=== PATIENT | male | born 1965 | race Caucasian/White ===

== ENCOUNTER 2016-10-08 01:34 | Emergency (ER) | payer MEDICAID ==
--- NOTE | 2016-10-08 02:11 | EDM.PDOC ---
<Michael Malik - Last Filed: 10/08/16 09:42> ED HPI GENERAL MEDICAL PROBLEM - General Chief Complaint: Flank Pain Stated Complaint: TROUBLE URINATING/VOMITING BLOOD Time Seen by Provider: 10/08/16 02:08 - Related Data Allergies Allergy/AdvReac Type Severity Reaction Status Date / Time No Known Allergies Allergy Verified 10/08/16 01:52 Home Meds: Home Meds Acetaminophen [Tylenol] 325 mg PO Q4H PRN 05/02/14 [History] Course - Vital Signs Last Recorded V/S: Last Vital Signs Temp 36.3 C 10/08/16 06:25 Pulse 104 H 10/08/16 06:25 Resp 18 10/08/16 06:25 BP 155/89 H 10/08/16 06:25 Pulse Ox 96 10/08/16 06:25 - Orders/Labs/Meds Labs: Laboratory Tests 10/08/16 10/08/16 10/08/16 Range/Units 02:10 02:10 02:49 WBC 8.2 (4.5-11.0) K/uL RBC 5.12 (4.30-5.90) M/uL Hgb 16.0 H (12.0-15.0) g/dL Hct 47.3 (40.0-54.0) % MCV 92 (80-98) fL MCH 31 (27-31) pg MCHC 34 (32-36) % Plt Count 168 (150-400) K/uL Neut % (Auto) 91 H (36-66) % Lymph % (Auto) 7 L (24-44) % [place] % (Auto) 2 (2-6) % Eos % (Auto) 0 L (2-4) % Baso % (Auto) 0 (0-1) % Sodium 137 L (140-148) mmol/L Potassium 5.1 (3.6-5.2) mmol/L Chloride 94 L (100-108) mmol/L Carbon Dioxide 20 L (21-32) mmol/L Anion Gap 28.1 H (5.0-14.0) mmol/L BUN 42 H D (7-18) mg/dL Creatinine 2.2 H D (0.8-1.3) mg/dL Est Cr Clr Drug Dosing 41.02 mL/min Estimated GFR (MDRD) 32 L (>60) Glucose 92 (74-106) mg/dL Calcium 10.3 H (8.5-10.1) mg/dL Total Bilirubin 7.6 H D (0.2-1.0) mg/dL AST 16905 H (15-37) U/L ALT 7705 H (12-78) U/L Alkaline Phosphatase 264 H D (46-116) U/L Total Protein 6.6 (6.4-8.2) g/dL Albumin 3.6 (3.4-5.0) g/dL Globulin 3.0 (2.3-3.5) g/dL Albumin/Globulin Ratio 1.2 (1.2-2.2) Amylase (25-115) U/L Lipase (73-393) U/L Urine Color Urine Appearance Urine pH (4.5-8.0) Ur Specific [place] (1.008-1.030) Urine Protein (NEGATIVE) mg/dL Urine Glucose (UA) (NEGATIVE) mg/dL Urine Ketones (NEGATIVE) mg/dL Urine Occult Blood (NEGATIVE) Urine Nitrite (NEGAITVE) Urine Bilirubin (NEGATIVE) Urine Urobilinogen (NORMAL) mg/dL Ur Leukocyte Esterase (NEGATIVE) Urine RBC (0-5) Urine WBC (0-5) Ur Epithelial Cells Amorphous Sediment Urine Bacteria Urine Mucus Acetaminophen (10.0-30.0) ug/mL Hepatitis A IgM Ab Non reactive (NR) Hep Bs Antigen Non reactive (NR) Hep B Core IgM Ab Non reactive (NR) Hepatitis C Antibody Non reactive (NR) Hepatitis Interpret See below 10/08/16 10/08/16 10/08/16 Range/Units 02:51 03:10 03:16 WBC (4.5-11.0) K/uL RBC (4.30-5.90) M/uL Hgb (12.0-15.0) g/dL Hct (40.0-54.0) % MCV (80-98) fL MCH (27-31) pg MCHC (32-36) % Plt Count (150-400) K/uL Neut % (Auto) (36-66) % Lymph % (Auto) (24-44) % [place] % (Auto) (2-6) % Eos % (Auto) (2-4) % Baso % (Auto) (0-1) % Sodium (140-148) mmol/L Potassium (3.6-5.2) mmol/L Chloride (100-108) mmol/L Carbon Dioxide (21-32) mmol/L Anion Gap (5.0-14.0) mmol/L BUN (7-18) mg/dL Creatinine (0.8-1.3) mg/dL Est Cr Clr Drug Dosing mL/min Estimated GFR (MDRD) (>60) Glucose (74-106) mg/dL Calcium (8.5-10.1) mg/dL Total Bilirubin (0.2-1.0) mg/dL AST (15-37) U/L ALT (12-78) U/L Alkaline Phosphatase (46-116) U/L Total Protein (6.4-8.2) g/dL Albumin (3.4-5.0) g/dL Globulin (2.3-3.5) g/dL Albumin/Globulin Ratio (1.2-2.2) Amylase 170 H (25-115) U/L Lipase 1473 H (73-393) U/L Urine Color Brown Urine Appearance Cloudy Urine pH 5.0 (4.5-8.0) Ur Specific [place] 1.025 (1.008-1.030) Urine Protein 30 H (NEGATIVE) mg/dL Urine Glucose (UA) Normal (NEGATIVE) mg/dL Urine Ketones 15 H (NEGATIVE) mg/dL Urine Occult Blood Moderate (NEGATIVE) Urine Nitrite Negative (NEGAITVE) Urine Bilirubin Moderate (NEGATIVE) Urine Urobilinogen 4 (NORMAL) mg/dL Ur Leukocyte Esterase Small (NEGATIVE) Urine RBC 10-20 H (0-5) Urine WBC 0-5 (0-5) Ur Epithelial Cells Not seen Amorphous Sediment Few Urine Bacteria Not seen Urine Mucus Not seen Acetaminophen (10.0-30.0) ug/mL Hepatitis A IgM Ab (NR) Hep Bs Antigen (NR) Hep B Core IgM Ab (NR) Hepatitis C Antibody (NR) Hepatitis Interpret 10/08/16 Range/Units 09:15 WBC (4.5-11.0) K/uL RBC (4.30-5.90) M/uL Hgb (12.0-15.0) g/dL Hct (40.0-54.0) % MCV (80-98) fL MCH (27-31) pg MCHC (32-36) % Plt Count (150-400) K/uL Neut % (Auto) (36-66) % Lymph % (Auto) (24-44) % [place] % (Auto) (2-6) % Eos % (Auto) (2-4) % Baso % (Auto) (0-1) % Sodium (140-148) mmol/L Potassium (3.6-5.2) mmol/L Chloride (100-108) mmol/L Carbon Dioxide (21-32) mmol/L Anion Gap (5.0-14.0) mmol/L BUN (7-18) mg/dL Creatinine (0.8-1.3) mg/dL Est Cr Clr Drug Dosing mL/min Estimated GFR (MDRD) (>60) Glucose (74-106) mg/dL Calcium (8.5-10.1) mg/dL Total Bilirubin (0.2-1.0) mg/dL AST (15-37) U/L ALT (12-78) U/L Alkaline Phosphatase (46-116) U/L Total Protein (6.4-8.2) g/dL Albumin (3.4-5.0) g/dL Globulin (2.3-3.5) g/dL Albumin/Globulin Ratio (1.2-2.2) Amylase (25-115) U/L Lipase (73-393) U/L Urine Color Urine Appearance Urine pH (4.5-8.0) Ur Specific [place] (1.008-1.030) Urine Protein (NEGATIVE) mg/dL Urine Glucose (UA) (NEGATIVE) mg/dL Urine Ketones (NEGATIVE) mg/dL Urine Occult Blood (NEGATIVE) Urine Nitrite (NEGAITVE) Urine Bilirubin (NEGATIVE) Urine Urobilinogen (NORMAL) mg/dL Ur Leukocyte Esterase (NEGATIVE) Urine RBC (0-5) Urine WBC (0-5) Ur Epithelial Cells Amorphous Sediment Urine Bacteria Urine Mucus Acetaminophen 28.5 (10.0-30.0) ug/mL Hepatitis A IgM Ab (NR) Hep Bs Antigen (NR) Hep B Core IgM Ab (NR) Hepatitis C Antibody (NR) Hepatitis Interpret Meds: Medications Discontinued Medications Generic Name Dose Route Start Last Admin Trade Name Freq PRN Reason Stop Dose Admin Cyclobenzaprine HCl 10 mg 10/08/16 02:41 10/08/16 02:56 Flexeril PO 10/08/16 02:42 10 mg ONETIME ONE Administration Hydromorphone HCl 0.5 mg 10/08/16 04:49 Dilaudid IVPUSH 10/08/16 04:50 ONETIME ONE Sodium Chloride 1,000 mls @ 999 mls/hr 10/08/16 03:00 10/08/16 03:04 Normal Saline IV 999 mls/hr ASDIRECTED BRITTANY Administration Sodium Chloride 1,000 mls @ 500 mls/hr 10/08/16 03:30 10/08/16 04:25 Normal Saline IV 500 mls/hr ASDIRECTED BRITTANY Administration Sodium Chloride 1,000 mls @ 400 mls/hr 10/08/16 05:00 10/08/16 06:22 Normal Saline IV 400 mls/hr ASDIRECTED BRITTANY Administration Ketorolac Tromethamine 60 mg 10/08/16 02:41 10/08/16 03:08 Toradol IM 10/08/16 02:42 Not Given ONETIME ONE Ketorolac Tromethamine 30 mg 10/08/16 02:49 10/08/16 03:05 Toradol IVPUSH 10/08/16 02:50 30 mg ONETIME ONE Administration Ondansetron HCl 4 mg 10/08/16 05:05 10/08/16 05:17 Zofran IVPUSH 10/08/16 05:06 4 mg ONETIME ONE Administration Pantoprazole Sodium 40 mg 10/08/16 05:44 10/08/16 05:53 Protonix Iv IVPUSH 10/08/16 05:45 40 mg ONETIME ONE Administration Departure - Departure Time of Disposition: 09:47 Disposition: DC/Tfer to Acute Hospital 02 Condition: Fair Clinical Impression: Ribs, multiple fractures, Liver disease due to alcohol - Discharge Information Referrals: Michael Avila MD [Primary Care Provider] - Forms: ED Department Discharge - Problem List & Annotations (1) Ribs, multiple fractures SNOMED Code(s): 7668209 Code(s): S22.49XA - MULTIPLE FRACTURES OF RIBS, UNSP SIDE, INIT FOR CLOS FX Status: Acute (2) Liver disease due to alcohol SNOMED Code(s): 91011222 Code(s): K70.9 - ALCOHOLIC LIVER DISEASE, UNSPECIFIED Status: Acute - Problem List Review Problem List Initiated/Reviewed/Updated: Yes - Assessment/Plan Assessment:: 51 year old male with acute rib pain after fall this past week, with x-ray showing multiple rib fractures In the ED noted to be sallow in color with labs showing marked elevations in LFTs. Acetominophen level not toxic. Concern is about alcohol liver disease although liver toxicity is a possibility Plan: Patient will be transferred to [facility] in [place], Dr. Payne will be accepting. Prior to transfer, an acetaminophen level was drawn and mildly elevated at 28.5. No treatment will be started although cause of abnormal liver function testing will need to be explored <Mary Arriaza - Last Filed: 10/13/16 07:19> ED HPI GENERAL MEDICAL PROBLEM - General Source of Information: Reports: Patient History Limitations: Reports: No Limitations - History of Present Illness INITIAL COMMENTS - FREE TEXT/NARRATIVE: Pt arrived with pain in the left rib cage area and pain in his abdoman. He has not had a bm since Tuesday. He fell 4-5 days ago on the steps and hit his left chest. Onset: Gradual Duration: Day(s): Location: Reports: Chest, Abdomen Associated Symptoms: Reports: Weakness Treatments THEATRICAL DRESSER: Reports: Acetaminophen left rib pain Pain Score (Numeric/FACES): 5 Past Medical History Psychiatric History: Reports: Addiction, Other (See Below) Other Psychiatric History: alcohol - Infectious Disease History Infectious Disease History: Reports: Chicken Pox, Measles, Mumps, Rubella Social & Family History - Tobacco Use Smoking Status *Q: Current Every Day Smoker Years of Tobacco use: 20 Packs/Tins Daily: 0.5 - Caffeine Use Caffeine Use: Reports: Soda - Alcohol Use Days Per Week of Alcohol Use: 1 Number of Drinks Per Day: 1 Total Drinks Per Week: 1 - Recreational Drug Use Recreational Drug Use: No ED ROS GENERAL - Review of Systems Review Of Systems: See Below Constitutional: Reports: No Symptoms HEENT: Reports: No Symptoms Respiratory: Reports: No Symptoms Cardiovascular: Reports: No Symptoms Endocrine: Reports: No Symptoms GI/Abdominal: Reports: Abdominal Pain, Other (pain in left ribs) : Reports: No Symptoms Musculoskeletal: Reports: No Symptoms Skin: Reports: No Symptoms Neurological: Reports: No Symptoms ED EXAM, GI/ABD - Physical Exam Exam: See Below Text/Narrative:: poli fell and landd on his lft rib cage. He now has pain in the ribs and hurts when he takes a deep breath. He has vomitd some today and some yesterdsy. He said it did look red but he had drank some red gatoraid. he has not had a bm since Tuesday. Exam Limited By: No Limitations General Appearance: Alert, Anxious, Moderate Distress Eyes: Bilateral: Normal Appearance, EOMI Ears: Normal TMs Nose: Normal Inspection Throat/Mouth: Normal Inspection Head: Atraumatic Neck: Normal Inspection Respiratory/Chest: No Respiratory Distress Cardiovascular: Regular Rate, Rhythm GI/Abdominal: Other ( some pain in the left uopper abdoman. ) Rectal (Males) Exam: Deferred Back Exam: Normal Inspection Extremities: Normal Inspection Course - Orders/Labs/Meds Labs: Laboratory Tests 10/08/16 10/08/16 10/08/16 Range/Units 02:10 02:10 02:49 WBC 8.2 (4.5-11.0) K/uL RBC 5.12 (4.30-5.90) M/uL Hgb 16.0 H (12.0-15.0) g/dL Hct 47.3 (40.0-54.0) % MCV 92 (80-98) fL MCH 31 (27-31) pg MCHC 34 (32-36) % Plt Count 168 (150-400) K/uL Neut % (Auto) 91 H (36-66) % Lymph % (Auto) 7 L (24-44) % [place] % (Auto) 2 (2-6) % Eos % (Auto) 0 L (2-4) % Baso % (Auto) 0 (0-1) % Sodium 137 L (140-148) mmol/L Potassium 5.1 (3.6-5.2) mmol/L Chloride 94 L (100-108) mmol/L Carbon Dioxide 20 L (21-32) mmol/L Anion Gap 28.1 H (5.0-14.0) mmol/L BUN 42 H D (7-18) mg/dL Creatinine 2.2 H D (0.8-1.3) mg/dL Est Cr Clr Drug Dosing 41.02 mL/min Estimated GFR (MDRD) 32 L (>60) Glucose 92 (74-106) mg/dL Calcium 10.3 H (8.5-10.1) mg/dL Total Bilirubin 7.6 H D (0.2-1.0) mg/dL AST 02219 H (15-37) U/L ALT 7705 H (12-78) U/L Alkaline Phosphatase 264 H D (46-116) U/L Total Protein 6.6 (6.4-8.2) g/dL Albumin 3.6 (3.4-5.0) g/dL Globulin 3.0 (2.3-3.5) g/dL Albumin/Globulin Ratio 1.2 (1.2-2.2) Amylase (25-115) U/L Lipase (73-393) U/L Urine Color Urine Appearance Urine pH (4.5-8.0) Ur Specific [place] (1.008-1.030) Urine Protein (NEGATIVE) mg/dL Urine Glucose (UA) (NEGATIVE) mg/dL Urine Ketones (NEGATIVE) mg/dL Urine Occult Blood (NEGATIVE) Urine Nitrite (NEGAITVE) Urine Bilirubin (NEGATIVE) Urine Urobilinogen (NORMAL) mg/dL Ur Leukocyte Esterase (NEGATIVE) Urine RBC (0-5) Urine WBC (0-5) Ur Epithelial Cells Amorphous Sediment Urine Bacteria Urine Mucus Acetaminophen (10.0-30.0) ug/mL Hepatitis A IgM Ab Non reactive (NR) Hep Bs Antigen Non reactive (NR) Hep B Core IgM Ab Non reactive (NR) Hepatitis C Antibody Non reactive (NR) Hepatitis Interpret See below 10/08/16 10/08/16 10/08/16 Range/Units 02:51 03:10 03:16 WBC (4.5-11.0) K/uL RBC (4.30-5.90) M/uL Hgb (12.0-15.0) g/dL Hct (40.0-54.0) % MCV (80-98) fL MCH (27-31) pg MCHC (32-36) % Plt Count (150-400) K/uL Neut % (Auto) (36-66) % Lymph % (Auto) (24-44) % [place] % (Auto) (2-6) % Eos % (Auto) (2-4) % Baso % (Auto) (0-1) % Sodium (140-148) mmol/L Potassium (3.6-5.2) mmol/L Chloride (100-108) mmol/L Carbon Dioxide (21-32) mmol/L Anion Gap (5.0-14.0) mmol/L BUN (7-18) mg/dL Creatinine (0.8-1.3) mg/dL Est Cr Clr Drug Dosing mL/min Estimated GFR (MDRD) (>60) Glucose (74-106) mg/dL Calcium (8.5-10.1) mg/dL Total Bilirubin (0.2-1.0) mg/dL AST (15-37) U/L ALT (12-78) U/L Alkaline Phosphatase (46-116) U/L Total Protein (6.4-8.2) g/dL Albumin (3.4-5.0) g/dL Globulin (2.3-3.5) g/dL Albumin/Globulin Ratio (1.2-2.2) Amylase 170 H (25-115) U/L Lipase 1473 H (73-393) U/L Urine Color Brown Urine Appearance Cloudy Urine pH 5.0 (4.5-8.0) Ur Specific [place] 1.025 (1.008-1.030) Urine Protein 30 H (NEGATIVE) mg/dL Urine Glucose (UA) Normal (NEGATIVE) mg/dL Urine Ketones 15 H (NEGATIVE) mg/dL Urine Occult Blood Moderate (NEGATIVE) Urine Nitrite Negative (NEGAITVE) Urine Bilirubin Moderate (NEGATIVE) Urine Urobilinogen 4 (NORMAL) mg/dL Ur Leukocyte Esterase Small (NEGATIVE) Urine RBC 10-20 H (0-5) Urine WBC 0-5 (0-5) Ur Epithelial Cells Not seen Amorphous Sediment Few Urine Bacteria Not seen Urine Mucus Not seen Acetaminophen (10.0-30.0) ug/mL Hepatitis A IgM Ab (NR) Hep Bs Antigen (NR) Hep B Core IgM Ab (NR) Hepatitis C Antibody (NR) Hepatitis Interpret 10/08/16 Range/Units 09:15 WBC (4.5-11.0) K/uL RBC (4.30-5.90) M/uL Hgb (12.0-15.0) g/dL Hct (40.0-54.0) % MCV (80-98) fL MCH (27-31) pg MCHC (32-36) % Plt Count (150-400) K/uL Neut % (Auto) (36-66) % Lymph % (Auto) (24-44) % [place] % (Auto) (2-6) % Eos % (Auto) (2-4) % Baso % (Auto) (0-1) % Sodium (140-148) mmol/L Potassium (3.6-5.2) mmol/L Chloride (100-108) mmol/L Carbon Dioxide (21-32) mmol/L Anion Gap (5.0-14.0) mmol/L BUN (7-18) mg/dL Creatinine (0.8-1.3) mg/dL Est Cr Clr Drug Dosing mL/min Estimated GFR (MDRD) (>60) Glucose (74-106) mg/dL Calcium (8.5-10.1) mg/dL Total Bilirubin (0.2-1.0) mg/dL AST (15-37) U/L ALT (12-78) U/L Alkaline Phosphatase (46-116) U/L Total Protein (6.4-8.2) g/dL Albumin (3.4-5.0) g/dL Globulin (2.3-3.5) g/dL Albumin/Globulin Ratio (1.2-2.2) Amylase (25-115) U/L Lipase (73-393) U/L Urine Color Urine Appearance Urine pH (4.5-8.0) Ur Specific [place] (1.008-1.030) Urine Protein (NEGATIVE) mg/dL Urine Glucose (UA) (NEGATIVE) mg/dL Urine Ketones (NEGATIVE) mg/dL Urine Occult Blood (NEGATIVE) Urine Nitrite (NEGAITVE) Urine Bilirubin (NEGATIVE) Urine Urobilinogen (NORMAL) mg/dL Ur Leukocyte Esterase (NEGATIVE) Urine RBC (0-5) Urine WBC (0-5) Ur Epithelial Cells Amorphous Sediment Urine Bacteria Urine Mucus Acetaminophen 28.5 (10.0-30.0) ug/mL Hepatitis A IgM Ab (NR) Hep Bs Antigen (NR) Hep B Core IgM Ab (NR) Hepatitis C Antibody (NR) Hepatitis Interpret Meds: Medications Discontinued Medications Generic Name Dose Route Start Last Admin Trade Name Freq PRN Reason Stop Dose Admin Cyclobenzaprine HCl 10 mg 10/08/16 02:41 10/08/16 02:56 Flexeril PO 10/08/16 02:42 10 mg ONETIME ONE Administration Hydromorphone HCl 0.5 mg 10/08/16 04:49 Dilaudid IVPUSH 10/08/16 04:50 ONETIME ONE Sodium Chloride 1,000 mls @ 999 mls/hr 10/08/16 03:00 10/08/16 03:04 Normal Saline IV 999 mls/hr ASDIRECTED BRITTANY Administration Sodium Chloride 1,000 mls @ 500 mls/hr 10/08/16 03:30 10/08/16 04:25 Normal Saline IV 500 mls/hr ASDIRECTED BRITTANY Administration Sodium Chloride 1,000 mls @ 400 mls/hr 10/08/16 05:00 10/08/16 06:22 Normal Saline IV 400 mls/hr ASDIRECTED BRITTANY Administration Ketorolac Tromethamine 60 mg 10/08/16 02:41 10/08/16 03:08 Toradol IM 10/08/16 02:42 Not Given ONETIME ONE Ketorolac Tromethamine 30 mg 10/08/16 02:49 10/08/16 03:05 Toradol IVPUSH 10/08/16 02:50 30 mg ONETIME ONE Administration Ondansetron HCl 4 mg 10/08/16 05:05 10/08/16 05:17 Zofran IVPUSH 10/08/16 05:06 4 mg ONETIME ONE Administration Pantoprazole Sodium 40 mg 10/08/16 05:44 10/08/16 05:53 Protonix Iv IVPUSH 10/08/16 05:45 40 mg ONETIME ONE Administration - Re-Assessments/Exams Free Text/Narrative Re-Assessment/Exam: 10/08/16 07:02 sgot,sgpt markedly elevated, lipase is 1400. He had rib detail which did reveal a fracture of the 11th, 10th and 9th rib on the left. The cat scan of the abdoman was not real remarkable except the gall bladder looked full of sludge.
[2016-10-08] MEDS ORDERED: Cyclobenzaprine 10 MG Tab PO ONE (02:41)
[2016-10-08] MEDS ORDERED: Ketorolac 60 MG/2 ML SDV IM ONE (02:41)
[2016-10-08] MEDS ORDERED: Ketorolac 30 MG/ML SDV IVPUSH ONE (02:49)
[2016-10-08] MEDS ORDERED: Sodium Chloride 0.9% 1,000 ML IV SCH ×3 (03:00→05:00)
[2016-10-08] MEDS ORDERED: HYDROmorphone 1 MG/ML Syringe IVPUSH ONE (04:49)
[2016-10-08] MEDS ORDERED: Ondansetron 4 MG/2 ML SDV IVPUSH ONE (05:05)
[2016-10-08] MEDS ORDERED: Pantoprazole 40 MG Vial IVPUSH ONE (05:44)
[2016-10-08 06:29] VITALS: BP 155/89
--- NOTE | 2016-10-08 08:52 | US ---
Abdomen Ltd INDICATION: possible gb full of sludge. FINDINGS: Increased hepatic echotexture consistent with fatty infiltration of the liver. No intra- o r extrahepatic bile duct dilatation. The gallbladder is normal. Aorta and IVC are normal where visua lized. Pancreas is normal where seen. Survey views of the right kidney are negative for hydronephros is. IMPRESSION: Fatty infiltration of the liver.
--- NOTE | 2016-10-08 09:10 | CR ---
Abdomen 2V AP Flat Upright INDICATION: pain in left chest FINDINGS: Normal bowel gas pattern. No evidence for small bowel obstruction or free air. Moderate st ool and gas in the colon.
--- NOTE | 2016-10-08 09:18 | CR ---
Ribs 2V w Chest Lt INDICATION: pain in left ribs. FINDINGS: Acute, lateral left sixth-ninth rib fractures. Probable old healed left rib fractures. No evidence for pneumothorax. Mild atelectasis left lung base.
== END 2016-10-08 10:25 ==
LOC: JP.ED 01:34
DX: S22.42XA Multiple fractures of ribs, left side, initial encounter for closed fracture (principal); F17.210 Nicotine dependence, cigarettes, uncomplicated; W10.9XXA Fall (on) (from) unspecified stairs and steps, initial encounter
CPT/HCPCS: 36415; 71101; 74020; 74176; 76705; 80053; 80074; 81001; 82150; 82271; 83690; 85025; 96361; 96372; 96374; 96375; 99285; A9270; C9113; G0480; J1885; J2405; J7040

== ENCOUNTER 2021-11-03 13:31 | Emergency (ER) | payer MEDICAID ==
[2021-11-03] MEDS ORDERED: Sodium Chloride 0.9% 1,000 ML IV SCH (14:15)
[2021-11-03] MEDS ORDERED: fentaNYL 100 MCG/2 ML SDV ONE ×2 (16:29→18:28)
[2021-11-03] MEDS ORDERED: Propofol 200 MG/20 ML SDV ONE (16:30)
[2021-11-03] MEDS ORDERED: Rocuronium 50 MG/5 ML Vial ONE (16:30)
[2021-11-03] MEDS ORDERED: Ondansetron 4 MG/2 ML SDV ONE (16:30)
[2021-11-03] MEDS ORDERED: Neostigmine Methylsulfate 1 MG/ML 5 ML Syringe ONE (16:30)
[2021-11-03] MEDS ORDERED: Glycopyrrolate 0.2 MG/ML 5 ML MDV ONE (16:30)
[2021-11-03] MEDS ORDERED: Dexamethasone 4 MG/ML SDV ONE ×2 (16:30→18:09)
[2021-11-03] MEDS ORDERED: Midazolam 1 MG/ML 2 ML SDV ONE (16:30)
[2021-11-03] MEDS ORDERED: Succinylcholine 200 MG/10 ML MDV ONE (16:30)
[2021-11-03] MEDS ORDERED: Lactated Ringers 1,000 ML ONE (16:38)
[2021-11-03 19:34] VITALS: BP 151/89; PULSE 74
== END 2021-11-03 19:40 | disposition home or self-care (01) ==
LOC: JP.ED 13:31
DX: T18.108A Unspecified foreign body in esophagus causing other injury, initial encounter (principal); I10 Essential (primary) hypertension; F17.210 Nicotine dependence, cigarettes, uncomplicated; Z79.899 Other long term (current) drug therapy; Z79.82 Long term (current) use of aspirin
CPT/HCPCS: 36415; 80048; 85025; 88305; 96360; 96361; 99283; C1726; J0330; J1100; J2250; J2405; J2704; J2710; J3010; J3490; J7030; J7120